=== PATIENT | male | born 1975 | race Caucasian/White ===

== ENCOUNTER 2019-05-11 08:57 | Emergency (ER) | payer OTHER ==
[2019-05-11 09:06] VITALS: BP 138/80
[2019-05-11] MEDS ORDERED: DEXAMETHASONE 10 MG/ML VIAL PO STA (09:14)
[2019-05-11] MEDS ORDERED: CHERRY SYRUP 10 ML UDC PO ONE (09:14)
--- NOTE | 2019-05-11 09:22 | ED Physician Documentation ---
PD HPI URI - Stated complaint Stated Complaint: COUGH - Chief complaint Chief Complaint: Resp - History obtained from History obtained from: Patient - History of Present Illness Timing - onset: How many weeks ago (1) Timing duration: Weeks (1) Timing details: Gradual onset, Still present Associated symptoms: Fever, Sweats, Nasal congestion, Rhinorrhea, Productive cough, Hemoptysis Contributing factors: Other (most recent gathering was [employer] 10 days ago.) Improves by: Rest Worsened by: Activity Similar symptoms before: Diagnosis (bronchitis) Recently seen: Not recently seen - Additional information Additional information: Previously well 43-year-old male has developed a cough congestion production of rust colored sputum low-grade fever and shortness of breath. He did have some muscle aches and pains as well. He has been sick for about 10 days and his last mass gathering was the [employer] on the and 01 May. Review of Systems Constitutional: reports: Fever, Myalgias, Fatigue Eyes: denies: Decreased vision Ears: denies: Ear pain Nose: reports: Rhinorrhea / runny nose, Congestion Throat: denies: Sore throat Cardiac: denies: Chest pain / pressure, Palpitations Respiratory: reports: Cough. denies: Dyspnea GI: denies: Vomiting, Diarrhea PD PAST MEDICAL HISTORY - Past Medical History Past Medical History: No - Past Surgical History Past Surgical History: No - Present Medications Home Medications: Ambulatory Orders Medication Instructions Recorded Confirmed Azithromycin [Zithromax] 250 mg PO DAILY #6 tablet 05/11/19 - Allergies Allergies/Adverse Reactions: Allergies Allergy/AdvReac Type Severity Reaction Status Date / Time No Known Drug Allergies Allergy Verified 05/11/19 09:04 - Social History Does the pt smoke?: No Smoking Status: Never smoker Does the pt drink ETOH?: Yes Does the pt have substance abuse?: No - Immunizations Immunizations: TDAP >10years/unknown PD ED PE NORMAL - Vitals Vital signs reviewed: Yes (Hypertensive) - General General: Alert and oriented X 3, No acute distress, Well developed/nourished - HEENT HEENT: Atraumatic, PERRL, EOMI, Ears normal, Moist mucous membranes, Pharynx benign - Neck Neck: Supple, no meningeal sign, No bony TTP - Cardiac Cardiac: RRR, No murmur - Respiratory Respiratory: No respiratory distress, Clear bilaterally - Abdomen Abdomen: Soft, Non tender - Back Back: No CVA TTP, No spinal TTP - Derm Derm: Normal color, Warm and dry, No rash - Extremities Extremities: No deformity, No edema, No calf tenderness / cord - Neuro Neuro: Alert and oriented X 3, manager packaging 2-12 intact, No motor deficit, No sensory deficit, Normal speech Eye Opening: Spontaneous Motor: Obeys Commands Verbal: Oriented GCS Score: 15 - Psych Psych: Normal mood, Normal affect Results - Vitals Vitals: Vital Signs - 24 hr 05/11/19 09:04 Temperature 36.6 C Heart Rate 87 Respiratory 16 Rate Blood Pressure 138/80 H O2 Saturation 97 Oxygen O2 Source Room air - Labs Labs: Laboratory Tests 05/11/19 09:30 Influenza A (Rapid) Negative Influenza B (Rapid) Negative PD MEDICAL DECISION MAKING - ED course Complexity details: reviewed results, re-evaluated patient, considered differential, d/w patient ED course: Previously well 43-year-old male with a cough and congestion is bringing up some rust colored sputum his ear nose and throat exam is unremarkable his lungs actually sound clear. He is recently had illness after a mass gathering and a incubation time consistent with possibility of transmission of coronavirus. 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 Based on the timeframe alone. The patient himself does not appear significantly ill he has not hypoxic and here in the emergency department he does not have fever. He does have a bronchitis productive of phlegm that is blood-tinged and with that we will treat with dexamethasone and a azithromycin. His influenza swab is negative and we have recommended he go home and self quarantine until his COVID-19 results return. Departure - Departure Disposition: Home, Self Care Clinical Impression: Bronchitis Condition: Stable Instructions: ED Upper Resp Infec Abx Tx Follow-Up: [facility] [Provider Group] Prescriptions: Azithromycin [Zithromax] 250 mg PO DAILY #6 tablet Comments: Today your influenza swab was negative we have drawn a Mt 19 specimen and results should be available in 2 days. Until that time the recommendation is to self quarantine for this respiratory illness. Wash your hands avoid contact with others if you go out in public wear a mask.
== END 2019-05-11 11:07 | disposition home or self-care (01) ==
LOC: ED 08:57
DX: J40 Bronchitis, not specified as acute or chronic (principal)
CPT/HCPCS: 81599; 87275; 87276; 99283; 99284; A9270